=== PATIENT | male | born 1985 | race Caucasian/White ===

== ENCOUNTER 2019-03-06 14:06 | Day surgery (SDC) | payer OTHER, SELFPAY ==
[2019-02-21 10:41] VITALS: BMI 27.7
[2019-03-06] VITALS (9 sets, daily range): BP systolic 111–141; BP diastolic 79–95; PULSE 67–109; RESP 11–16; TEMP 36.1–36.6; O2SAT 95–100; BMI 27.7
--- NOTE | 2019-03-06 | DI.RAD.S_ITS ---
PROCEDURE: XR LUMBAR SPINE 2-3V INDICATIONS: L5-S1 LAMI TECHNIQUE: 2 views of the lumbar spine were acquired. COMPARISON: None. FINDINGS: Bones: Access port for many discectomy placed to the right of midline superimposed on the posterior elements of L5-S1. Soft tissues: Overlying bowel gas pattern is normal. No suspicious soft tissue calcifications. IMPRESSION: Normal portable positioning for L5-S1 laminectomy procedure. Dictated by: Corby Anaya M.D. on 03/06/2019 at 18:29 Approved by: Corby Anaya M.D. on 03/06/2019 at 18:30
[2019-03-06] MEDS: LACTATED RINGERS 1,000 ML 42 ML IV (15:30)
--- NOTE | 2019-03-06 17:23 | PM.PREOP ---
Pre-operative Note Interval Note History & Physical reviewed/Exam performed by Physician: Yes Changes to H&P: No
--- NOTE | 2019-03-06 17:26 | SUR.OPER ---
Prone on spine table, head in foam head support, padded chest and pelvic supports, gel pad at knees, lower legs supported by pillows; nipples, genitalia and toes free of pressure, arms secured on foam padded arm boards at <90 degrees abduction. Tape over blanket at thigh secured to table.
[2019-03-06] MEDS: CEFAZOLIN 2 GM/100 ML FROZ.PIGGY IV (17:41)
[2019-03-06] MEDS: BUPIVACAINE 0.25% W/ EPI 30 ML VIAL INJ (18:05)
--- NOTE | 2019-03-06 18:26 | PM.OP.1 ---
Operative Date/Time/Diagnoses Date of procedure: 03/06/19 Time of procedure: 16:45 Pre-op diagnosis: 1. L5-S1 disc herniation 2. Lumbar radiculopathy Post-op diagnosis: same Procedure & Clinicians Procedure: 1. L5-S1 right microdiscectomy Same procedure as scheduled: Yes Indications: Patient has been having chronic back pain and worsening lumbar radiculopathy. Patient failed multiple conservative management with worsening pain weakness and numbness in her lower extremity. Patient has been having difficulty performing activity of daily living. After discussing risks benefits of treatment options, patient elected proceed with surgery. Surgeon: Stacy Eden Perinatal Specialist: Claudia Diana Click Yes if Unassisted: No Anesthesia Type: General Operative Notes Closure Type: primary Specimen(s): none sent Estimated Blood Loss (mL): 10 Blood products transfused: none Procedure in detail: Patient was seen in the preoperative area. Risks and benefits of the surgery was discussed with the patient. Informed consent was obtained from the patient and placed in the chart. Surgical site was marked. Patient was taken to the operative room. General anesthesia was administered. Prophylactic antibiotic was given to the patient less than 30 min before the incision was made. Patient was placed into a prone position on the Kamran table. Patient's back was then prepped and draped in the sterile fashion. Time-out was performed at this time. Using AP and lateral C-arm imaging the interval between L5-S1 was identified and marked on patient's back. A 1 inch incision 1 in from midline was made on the right side. The fascia was incised in line with skin incision. Globus MARS retractors was placed inside the incision and docked onto the L5 lamina. Using microsurgical technique and operating microscope, a L5-S1 laminotomy was performed using a Kerrison rongeur. Liagamentum flavum was resected at the site of the laminotomy. The disc space at L5-S1 was identified. Microdiscectomy was performed by incising the annulus with #11 blade. Microcurettes and pituitary was used to removed herniated disc fragments of disc from the epidural space. After the microdiskectomy was completed, the area medial lateral superior and inferior to the area of the microdiskectomy was inspected and explored using a micro curette. No other impinging structure was identified. The wound was then irrigated with sterile normal saline. 40 mg Depo-Medrol was placed into the epidural space. The deep fascia was closed with 1-0 Vicryl. The subcutaneous tissue was closed with 2-0 Vicryl. The skin was closed with skin jeremie. Patient tolerated the procedure well. There were no complications. Patient was transferred recovery room in stable condition. Complications: none Condition: stable Disposition: same day surgery Plan for aftercare: Discharge to home
[2019-03-06] MEDS: OXYCODONE/ACETAMINOPHEN 5/325 TABLET 1 TAB PO (18:58)
[2019-03-06] MEDS: fentaNYL 100 MCG/2 ML INJ 50 MCG IV ×2 (19:00→19:05)
== END 2019-03-06 19:40 | disposition home or self-care (01) ==
PROVIDERS: Visit Provider Orthopaedic Surgery Orthopaedic Surgery of the Spine
PROC: (CPT 63030; principal; 2019-03-06 15:45)
DX: M51.16 Intervertebral disc disorders with radiculopathy, lumbar region (principal)
CPT/HCPCS: 63030; 72100; 76000; J0690; J1100; J2405; J2704; J2920; J3010

== ENCOUNTER → 2019-06-13 18:09 | Outpatient (CLI) | payer OTHER, SELFPAY ==
--- NOTE | 2019-06-13 | DI.MRI.S_ITS ---
PROCEDURE: MR LUMBAR SPINE WO CON INDICATIONS: INTERVERTEBRAL DISC DISORDERS WITH RADICULOPATHY TECHNIQUE: Noncontrast sagittal T1 spin echo and T2 fast echo, sagittal STIR, axial T1 and T2 fast spin echo through the lumbar spine. In cases with scoliosis, additional coronal T2 fast spin echo may be performed. COMPARISON: [facility], CR, XR LUMBAR SPINE 2-3V, 03/06/2019, 17:58. [facility], MR, MR LUMBAR SPINE WITHOUT CONTRAST, 08/10/2018, 14:53. FINDINGS: Image quality: Excellent. Alignment and Curvature: Trace retrolisthesis is present at L5-S1. Bone Marrow: Marrow is of normal overall signal. No acute vertebral body compression fractures. Spinal Cord: Conus medullaris terminates at the L2 level. Visualized cord demonstrates normal signal and size. Paraspinous Soft Tissues: No paravertebral masses. Discs: Mild desiccation is present at L5-S1. L1-L2: Minimal disc bulge without spinal stenosis or narrowing. Mild ligamentum flavum hypertrophy. No interval change. L2-L3: Minimal disc bulge without spinal stenosis or foraminal narrowing. Ghzc-[id number] ligamentum flavum hypertrophy. No interval change. L3-L4: Minimal disc lobes without spinal stenosis. No foraminal narrowing. Mild to moderate ligamentum flavum hypertrophy is present. No interval change. L4-L5: Minimal disc bulge with minimal appearance of canal narrowing. No foraminal narrowing. Mild to moderate ligamentum flavum hypertrophy is present. L5-S1: Right hemilaminectomy changes present. Minimal disc bulge without spinal stenosis. Minimal to mild left foraminal narrowing. There is mild narrowing in the right subarticular recess. IMPRESSION: 1. Right hemilaminectomy changes at L5-S1. 2. Minimal multilevel disc bulges. Dictated by: Jannet Sánchez M.D. on 06/14/2019 at 10:24 Approved by: Jannet Sánchez M.D. on 06/14/2019 at 10:33
== END ==
PROVIDERS: Visit Provider Orthopaedic Surgery Orthopaedic Surgery of the Spine
DX: M51.16 Intervertebral disc disorders with radiculopathy, lumbar region (principal)
CPT/HCPCS: 72148